=== PATIENT | female | born 1950 ===

== ENCOUNTER 2023-05-11 07:02 | Day surgery (SDC) | payer OTHER ==
[~2023-05-11] VITALS: Ht 160 cm; Wt 69.2 kg
[~2023-05-11 07:02] MED LIST: ALEN70; ALPR1 PO; AZIT250; BACL10 PO; BUPR150ER; Balanced Salt Epinephrine Irrigation Solution 500 mL IR SCH; CIME400 PO; CLON1 PO; CYCL10 PO; DIAZ5; EZET10-10; FIORICET PO; FLUV80CR; FURO20; GABA300 PO; HYDACE10B; HYDACE10B PO; HYDACE5 PO; IBUP600 PO; IBUP800 PO; Imitrex100 MG PO; LORA2 PO; Lidocaine HCl/Pf 1% 5 ML VIAL ONE; Lidocaine HCl/Pf 1% 5 ML VIAL XX SCH; METF500; Moxifloxacin HCL 0.5 MG/0.1 ML 0.4MLSYR RIGHTEYE SCH; NALOXONE HCL4 MG; NS 500 ML IV ONE; OLAN10; OMEP20ER; OXAYDO5 M2 PO; OXYACE5T PO; OXYB5 PO; PARO20; PHENTERMINE; PHENYLEPHRINE\\TROPICAMIDE\\TETRACAINE OPHTHALMIC DILATING SOLN RIGHTEYE PRN; PRAM.125 PO; PROC10 PO; Povidone-Iodine 450 DROP/30 ML Solution ONE; Povidone-Iodine 450 DROP/30 ML Solution RIGHTEYE SCH; QUET200 PO; RANI150; ROSU10TA PO; Robaxin750 MG PO; SERT100 PO; SUMA25 PO; TRAZ100; [UNRECOGNIZED DRUG - REMARK]
[2023-05-11] MEDS ORDERED: NS 500 ML IV ONE (08:01)
--- NOTE | 2023-05-11 08:01 | NUR ---
05/11/23 0801 [facility] DR MENA CONSULTED BECAUSE PT STATES PROCEDURE IS ON L EYE, BUT PAPERWORK DOCUMENTS R EYE PROCEDURE TODAY. 0758: DR MENA IN TO DISCUSS PROCEDURE WITH PATIENT. PER DR MENA, OK TO PROCEED WITH R EYE.
[2023-05-11] MEDS ORDERED: Tetracaine HCl 0.5% Opth Soln 15 ml RIGHTEYE ONE (08:36)
[2023-05-11] MEDS ORDERED: Midazolam HCl 1MG / ML 2ML Vial ONE (08:38)
[2023-05-11 09:21] VITALS: BP 162/84
== END 2023-05-11 09:16 | disposition home or self-care (01) ==
LOC: ORSCSDS 07:02
PROVIDERS: Student in an Organized Health Care Education/Training Program
PROC: 08RJ3JZ Replacement of Right Lens with Synthetic Substitute, Percutaneous Approach (ICD-10-PCS; principal; 2023-05-11 08:30)
DX: H25.13 Age-related nuclear cataract, bilateral (principal); F41.9 Anxiety disorder, unspecified; R06.02 Shortness of breath; F17.210 Nicotine dependence, cigarettes, uncomplicated; Z79.899 Other long term (current) drug therapy
CPT/HCPCS: 82947; J2001; J2250; J7040; V2632